=== PATIENT | female | born 1990 | race Caucasian/White ===

== ENCOUNTER 2024-12-27 16:59 | Emergency (ER) | payer MEDICARE, MEDICAID ==
[~2024-12-27] VITALS: Ht 160 cm; Wt 136.6 kg
[2024-12-27 17:13] VITALS: BP 140/107; PULSE 93; RESP 18; TEMP 97.7; O2SAT 97
== END 2024-12-27 19:16 | disposition left against medical advice (07) ==
LOC: EMS 16:59
DX: Z00.8 Encounter for other general examination (principal); Z53.21 Procedure and treatment not carried out due to patient leaving prior to being seen by health care provider